=== PATIENT | female | born 1940 | race Caucasian/White ===

== ENCOUNTER 2017-11-23 19:27 | Observation (INO) ==
[2017-11-23] MEDS ORDERED: Acetaminophen 325 MG TABLET PO ONE (21:26)
--- NOTE | 2017-11-23 21:29 | Emergency Department Note ---
Disposition Clinical Impression: Bilateral pubic rami fractures Qualifiers: Encounter type: initial encounter Fracture type: closed Qualified Code(s): S32.591A - Other specified fracture of right pubis, initial encounter for closed fracture Disposition: Admitted As Inpatient Condition: Undetermined Time of Disposition: 23:06 General Adult HPI - General Chief complaint: ED Back Pain/Injury Stated complaint: fall, back pain, L leg pain Time Seen by Provider: 11/23/17 21:14 Source: patient, family Mode of arrival: wheelchair Limitations: no limitations Nursing Notes Reviewed: Yes Vital Signs Reviewed: Yes - History of Present Illness HPI Narrative: Patient with fall carpeted room yesterday morning while attempting to go to the bathroom. Today patient with difficulty ambulating, complaining of pain to the hips. Patient with history of dementia. Lives with family. Family unable to determine which hip is causing the most pain or if the pain is originating from some other area. Family states patient fell she did not hit her head no loss of consciousness. Baseline dementia without change. Pt Subjective Complaint: B HIP PAIN Onset (ago): day(s) (1) Location: pelvis Radiation: non-radiation Pain Severity: severe Pain Scale: 9 Quality: other Consistency: constant (Unsure due to baseline mental status) Improves with: rest Worsens with: other (Ambulation) - Related Data Home Medications Medication Instructions Recorded Confirmed Lisinopril [Zestril] 5 mg PO DAILY 11/23/17 11/23/17 Omeprazole [PriLOSEC] 40 mg PO DAILY 11/23/17 11/23/17 Quetiapine Fumarate [SEROquel] 25 mg PO HS 11/23/17 11/23/17 Simvastatin [Zocor] 20 mg PO DAILY 11/23/17 11/23/17 hydrOXYzine HCl [Hydroxyzine HCl] 25 mg PO Q6H PRN 11/23/17 11/23/17 Allergies Allergy/AdvReac Type Severity Reaction Status Date / Time No Known Allergies Allergy Verified 01/09/16 17:05 All systems ED: reviewed and negative except as stated. Review of Systems: As Per HPI Constitutional: Denies: fever, chills, weakness Cardiovascular: Reports: as per HPI. Denies: chest pain, palpitations Respiratory: Reports: as per HPI. Denies: cough, dyspnea, wheezes Gastrointestinal: Reports: as per HPI. Denies: abdominal pain, vomiting Genitourinary: Reports: as per HPI Musculoskeletal: Reports: other (Hip pain with movement, unable to ambulate.) Integumentary: Reports: as per HPI Neurological: Reports: other (Baseline dementia). Denies: headache, weakness, numbness, paresthesias Psychiatric: Reports: as per HPI Past Medical History - Past Medical History Source: obtained from family Medical history: Reports: dementia Psychiatric history: Reports: no psych history - Social History Smoking Status: Never smoker Smokeless Tobacco Status: No Alcohol use: Reports: none Drug use: Reports: none Physical Exam Patient sitting in wheelchair during examination. Unable to bear full weight to come out of wheelchair for exam or x-rays. Pt unable to stand out of chair, noted with grimace while attempting. Due to baseline dementia patient unable to describe type of pain or location of pain or any injury sustained during the fall. Palpation exam reveled pain in BLE pain with abduction and abduction of hips; pain with bilateral leg raises as manifested by patient yelling out in pain. - General Limitations: no limitations General appearance: alert - Head Head exam: atraumatic, normocephalic, normal inspection - Eye Eye exam: Present: normal appearance - ENT ENT exam: normal exam - Neck Neck exam: Present: normal inspection, full ROM, trachea midline. Absent: tenderness - Chest Chest inspection: Present: normal inspection, symmetric chest wall rise - Expanded Lower Extremity Exam Hip/Pelvis exam: Present: tenderness, other (See PE narrative). Absent: swelling, abrasion Upper leg exam: Present: normal inspection, tenderness Knee exam: Present: normal inspection. Absent: tenderness, swelling, deformity Lower leg exam: Present: normal inspection. Absent: tenderness, swelling, deformity Ankle exam: Present: normal inspection. Absent: tenderness, swelling, deformity Gait: unable to bear weight (with either leg) - Back Exam Back exam: Present: normal inspection. Absent: tenderness - Neurological Exam Neurological exam: Present: alert, CN II-XII intact, other ( baseline dementia) - Psychiatric Psychiatric exam: Present: normal affect, normal mood - Skin Skin exam: Present: warm, dry, intact Course Course Narrative: 77-year-old frail female with baseline dementia presents to emergency department for evluation of inability to ambulate and pain resulting from fall yesterday morning. patient lives with family who states that yesterday morning while trying to go to thee bathroom patien fell to carpeted floor. Family states her normal baseline is patient is ambulatory with a steady gait. Today patient unable to bear weight at all , complaints of pain with movement of bilateral lower extremities higher than the knee level. patient unable to specify where pain is located or describe intensity of pain due to baseline dementia , grimacing and yelling out during examination of hip and pelvis area of bilateral sides, palpation of all joints and spine negative except for the hip and pelvis area. x-ray revealed bilateral pelvic fractures and micheline/remus. Patient continues to be unable to bear weight. Will need rehabilitation and pain control spoke with patient and family about admission to the hospital and agreeable. - Reevaluation(s) Reevaluation #1: x-ray revealed bilateral pelvic fractures. Typically inoperable. order placed to admit accepted by Dr. Bundy labs and EKG ordered. Vital Signs Temperature 99.5 F 11/23/17 19:48 Pulse Rate 90 11/23/17 19:48 Respiratory Rate 20 11/23/17 19:48 Blood Pressure 136/61 11/23/17 19:48 O2 Sat by Pulse Oximetry 98 11/23/17 19:48 Temperature 97.8 F 11/23/17 23:43 Pulse Rate 84 11/23/17 23:43 Respiratory Rate 15 11/23/17 23:43 Blood Pressure 202/85 11/23/17 23:43 O2 Sat by Pulse Oximetry 97 11/23/17 23:43 Oxygen Delivery Oxygen Delivery Room Air Medical Decision Making - Lab Data Result diagrams: 11/23/17 22:39 11/23/17 22:46 Lab Results 11/23/17 11/23/17 Range/Units 22:39 22:46 WBC 8.7 (4.3-11.1) K/mcL RBC 3.96 (3.82-4.97) M/mcL Hgb 11.5 (11.5-15.4) g/dL Hct 33.7 L (35.3-44.9) % MCV 85.1 (83.0-100.0) fL MCH 29.0 (28.0-33.3) pg MCHC 34.1 (31.6-35.5) g/dL RDW 12.9 (11.5-14.5) % Plt Count 184 (140-400) K/mcL MPV 9.6 (9.4-12.4) fL Immature Gran % 0.3 (0-4) % Seg Neutrophils % 77.4 % Lymphocytes % 12.8 % Monocytes % 6.5 % Eosinophils % 2.5 % Basophils % 0.5 % Neutrophils # 6.7 (1.6-8.9) K/mcL Lymphocytes # 1.1 (0.6-4.6) K/mcL Monocytes # 0.6 (0.0-1.3) K/mcL Eosinophils # 0.2 (0.0-0.6) K/mcL Basophils # 0.0 (0.0-0.2) K/mcL Immature Plt Fraction 1.9 (1.1-6.1) % Sodium 137 (136-145) mEq/L Potassium 3.4 L (3.5-5.1) mEq/L Chloride 106 (98-107) mEq/L Carbon Dioxide 24 (23-29) mEq/L BUN 19 (8-23) mg/dL Creatinine 0.85 (0.60-1.20) mg/dL Est GFR ( Amer) > 60 (> 60) Est GFR (Non-Af Amer) > 60 (> 60) BUN/Creatinine Ratio 22 (6-26) Glucose 164 H (70-105) mg/dL Calculated Osmolality 290 (280-300) Calcium 9.0 (8.6-10.3) mg/dL Total Bilirubin 1.0 (0.3-1.0) mg/dL AST 14 (13-39) Units/L ALT 11 (7-52) Units/L Alkaline Phosphatase 73 (34-104) Units/L Serum Total Protein 6.6 (6.4-8.9) g/dL Albumin 3.9 (3.5-5.7) g/dL Globulin 2.7 (2.4-3.5) g/dL Albumin/Globulin Ratio 1.4 (1.1-2.2) Attestation Statement - Attestation Attestation: I, Justo Resendez MD, personally evaluated this patient and discussed their management with the resident physician. I reviewed the resident's note and agree with the documented findings, medical decision making, and plan of care. 77-year-old female presents to the emergency department with a complaint that she fell early Friday morning. It is now late Friday evening. She has been unable to ambulate since the fall. Patient thinks that she hit her head but is not sure. She does have some dementia. There was mention in the chart about lower back pain however patient denies lower back pain to me. On examination patient is a well-developed well-nourished elderly female in no acute distress. She is alert and oriented 3. There is no cyanosis or diaphoresis. Head is nontender with no palpable hematomas. Neck is nontender with full range of motion. Breath sounds are clear and equal bilaterally. Heart regular rate and rhythm. Abdomen soft and nontender with normal bowel sounds. There is no tenderness to palpation over the lumbar spine. There is tenderness on compression of the pelvis and palpation over the anterior pelvis. Pain with movement of the left hip. Neurovascular function intact distally. Labs reviewed. X-ray of the lumbar spine showed no acute fracture. X-ray of the pelvis showed bilateral pubic rami fractures. The hospitalist, Dr. Bundy, was consulted and accepted admission of the patient.
[2017-11-23 22:58] LABS: Basophils % 0.5 %; Eosinophils # 0.2 K/mcL (0.0-0.6); Eosinophils % 2.5 %; Hematocrit 33.7 % (35.3-44.9); Hemoglobin 11.5 g/dL (11.5-15.4); Immature Granulocytes % 0.3 % (0-4); Immature Platelets 1.9 % (1.1-6.1); Lymphocytes # 1.1 K/mcL (0.6-4.6); Lymphocytes % 12.8 %; Mean Corpuscular HGB Conc 34.1 g/dL (31.6-35.5); Mean Corpuscular Volume 85.1 fL (83.0-100.0); Mean Platelet Volume 9.6 fL (9.4-12.4); Monocytes # 0.6 K/mcL (0.0-1.3); Monocytes % 6.5 %; Neutrophils # 6.7 K/mcL (1.6-8.9); Platelet Count 184 K/mcL (140-400); Red Blood Count 3.96 M/mcL (3.82-4.97); Red Cell Distribution Width 12.9 % (11.5-14.5); Segmented Neutrophils % 77.4 %
[2017-11-23 23:14] LABS: Alanine Aminotransferase 11 Units/L (7-52); Albumin 3.9 g/dL (3.5-5.7); Albumin/Globulin Ratio 1.4 (1.1-2.2); Alkaline Phosphatase 73 Units/L (34-104); Aspartate Amino Transferase 14 Units/L (13-39); BUN/Creatinine Ratio 22 (6-26); Blood Urea Nitrogen 19 mg/dL (8-23); Carbon Dioxide 24 mEq/L (23-29); Chloride 106 mEq/L (98-107); Globulin 2.7 g/dL (2.4-3.5); Glucose 164 mg/dL (70-105); Osmolality,Calculated 290 (280-300); Potassium 3.4 mEq/L (3.5-5.1); Sodium 137 mEq/L (136-145); Total Protein 6.6 g/dL (6.4-8.9); eGFR For African Americans > 60 (> 60); eGFR For Non-African Americans > 60 (> 60)
[2017-11-24] MEDS ORDERED: Naloxone 0.4 MG/ML INJ IVP PRN (02:03)
[2017-11-24] MEDS ORDERED: Ondansetron 4 MG/2 ML VIAL IVP PRN (02:03)
[2017-11-24] MEDS ORDERED: Acetaminophen 325 MG TABLET PO PRN (02:03)
--- NOTE | 2017-11-24 02:19 | Internal Med History&Physical ---
Date of Encounter: 11/24/17 Time of Encounter: 02:12 Assessment and Plan (1) Bilateral pubic rami fractures Current visit: Yes Status: Acute 1. Will treat pain with oral and IV narcotics (if necessary) for adequate pain control. 2. Consult Orthopedics. 3. Patient will need PT/OT consults if ok with Orthopedics. Qualifiers: Encounter type: initial encounter Fracture type: closed Qualified Code(s) : S32.591A - Other specified fracture of right pubis, initial encounter for closed fracture; S32.592A - Other specified fracture of left pubis, initial encounter for closed fracture; S32.592A - Other specified fracture of left pubis , initial encounter for closed fracture; S32.592A - Other specified fracture of left pubis, initial encounter for closed fracture (2) Unwitnessed fall Current visit: Yes Status: Acute 1. Unable to obtain any history. As per ER discussions, patient had an unwitnessed fall. I have to presume this may have been due to syncope. 2. Will proceed with syncope work-up as follows: ECHO, Carotid Dopplers, serial troponins, EKG, and telemetry. I will also monitor glucose to rule out hypoglycemia. 3. I also ordered Head CT now. (3) Dementia Current visit: Yes Status: Chronic 1. I am unsure if she is at her baseline mental/cognitive state. Need to confirm with family. 2. Resume home meds as appropriate. Qualifiers: Dementia type: unspecified type Dementia behavioral disturbance: without behavioral disturbance Qualified Code(s): F03.90 - Unspecified dementia without behavioral disturbance (4) DVT prophylaxis Current visit: Yes Status: Acute 1. Heparin SQ. Internal Medicine - H&P: HPI Chief complaint: pelvic pain Admitted From: Emergency Dept Plans for Post Hospital Care: Transfer Care Home Facility History of present illness: Ms. Hamm is a 77 year old female who presented to ER with complaints of pelvic pain and inability to walk. She was found to have evidence of pelvic fracture on imaging in the ER. I was contacted by our staff to admit the patient. As per my discussions with the ER staff, I was informed that this was an unwitnessed fall and that she was found in the basement by her family. I asked the ER staff to obtain an EKG and some routine labs and requested that she be placed on telemetry floor. Reportedly, per my discussions with ER staff , patient has a history of dementia. Upon my assessment of the patient, she is confused, disoriented, and is unable to provide any history whatsoever. Family members are not present and have already left the premises. I reviewed her imaging studies from the ER and noted that there was no imaging performed of her head. I cannot palpate any deformities of her head or skull and did not appreciate any evidence of contusion of her head. Nonetheless, I will order CT of the head. Patient was unable to provide any history as to the nature of her fall, injury, or symptoms preceding, during, and after the fall. She does not realize she is in the hospital. She cannot tell me the correct day, time, place, or situation. No further history could be obtained. Past Med Surg Social Fam HX - Past Medical History Source: old records reviewed, other (ER discussion) Medical history: dementia Psychiatric history: no psych history - Past Surgical History Surgical History: cholecystectomy - Social History Smoking Status: Never smoker Smokeless Tobacco Status: No Alcohol use: none Drug use: none - Family History Mother Living Status: Hx Family Neurologic Disorders: Yes (Dementia) Internal Medicine - H&P: Meds Lisinopril [Zestril] 5 mg PO DAILY 11/23/17 [History] Omeprazole [PriLOSEC] 40 mg PO DAILY 11/23/17 [History] Quetiapine Fumarate [SEROquel] 25 mg PO HS 11/23/17 [History] Simvastatin [Zocor] 20 mg PO DAILY 11/23/17 [History] hydrOXYzine HCl [Hydroxyzine HCl] 25 mg PO Q6H PRN 11/23/17 [History] 3 Allergy/AdvReac Type Severity Reaction Status Date / Time No Known Allergies Allergy Verified 01/09/16 17:05 ROS unobtainable: due to mental status - Constitutional Vitals: Temp Pulse Resp BP Pulse Ox 97.8 F 84 15 202/85 97 11/23/17 23:43 11/23/17 23:43 11/23/17 23:43 11/23/17 23:43 11/23/17 23:43 General appearance: Present: A&O X 0, cooperative, disheveled, pleasant. Absent : answers questions appropriately Exam: looks dry, malnourished, and somewhat unkempt - Head Head exam: Present: normal inspection - Expanded Head Exam Head exam expanded: Absent: abrasion, Benjamin's sign, contusion, general tenderness, hematoma, laceration - Eye Eye exam: Present: EOMI, PERRL. Absent: scleral icterus Pupils: Present: normal accommodation - ENT ENT exam: Present: mucous membranes dry, normal exam - Neck Neck exam general surgery: Present: full ROM, supple. Absent: tenderness, nuchal rigidity - Expanded Neck Exam Neck exam: Absent: carotid bruit - Respiratory Respiratory exam: Present: CTAB. Absent: chest wall tenderness, rales, respiratory distress, rhonchi, wheezes - Cardiovascular Cardiovascular exam: Present: RRR, +S1, +S2. Absent: diastolic murmur, systolic murmur - GI/Abdominal GI/Abdominal exam: Present: normal bowel sounds, soft. Absent: guarding, hepatomegaly, mass, rebound, splenomegaly, tenderness - Additional comments: pain upon palpation of hips and pelvis/suprapubic bones - Extremities Exam Extremities exam: Present: normal capillary refill, warm, radial pulses palpable and symmetrical. Absent: calf tenderness, tenderness - Back Exam Back exam: Absent: CVA tenderness (L), CVA tenderness (R) - Neurological Exam Neurological exam: Present: altered, no focal deficits, strengths equal and symetr throughout. Absent: speech deficit - Psychiatric Additional comments: confused and disoriented - Skin Skin exam: Present: dry, rash (rash. scratch klein, and dry skin on legs), warm Internal Med - H&P Results - Labs CBC & Chem 7: 11/23/17 22:39 11/23/17 22:46 - Diagnostic Studies Other Images Status: image reviewed by me (Pelvic Xrays confirming pelvic fracture)
[2017-11-24] MEDS: *HR* OxyCODONE Immed Rel 5 MG TABLET PO PRN ×2 (02:34→13:32)
[2017-11-24 02:41] LABS: Basophils % 0.5 %; Eosinophils # 0.2 K/mcL (0.0-0.6); Eosinophils % 2.7 %; Hematocrit 36.4 % (35.3-44.9); Hemoglobin 12.2 g/dL (11.5-15.4); Immature Granulocytes % 0.5 % (0-4); Lymphocytes # 1.4 K/mcL (0.6-4.6); Lymphocytes % 16.1 %; Mean Corpuscular HGB Conc 33.5 g/dL (31.6-35.5); Mean Corpuscular Hemoglobin 28.8 pg (28.0-33.3); Mean Corpuscular Volume 86.1 fL (83.0-100.0); Mean Platelet Volume 9.9 fL (9.4-12.4); Monocytes # 0.7 K/mcL (0.0-1.3); Monocytes % 7.6 %; Neutrophils # 6.2 K/mcL (1.6-8.9); Platelet Count 186 K/mcL (140-400); Red Blood Count 4.23 M/mcL (3.82-4.97); Segmented Neutrophils % 72.6 %
[2017-11-24] MEDS: 0.9 % Sodium Chloride w KCl 20 MEQ/1,000 ML MLS IVC SCH ×2 (02:46→12:13)
[2017-11-24 02:51] LABS: INR 1.1; Prothrombin Time 11.4 Seconds (9.4-12.1)
[2017-11-24 02:54] LABS: Activated Partial Thrombo Time 27.7 Seconds (26.0-36.0)
[2017-11-24] MEDS: *HR* Morphine 2 MG/ML SYRINGE IVP PRN ×3 (02:56→12:12)
[2017-11-24 03:03] LABS: Alanine Aminotransferase 12 Units/L (7-52); Albumin 4.1 g/dL (3.5-5.7); Albumin/Globulin Ratio 1.5 (1.1-2.2); Alkaline Phosphatase 74 Units/L (34-104); Aspartate Amino Transferase 16 Units/L (13-39); BUN/Creatinine Ratio 20 (6-26); Bilirubin,Total 1.2 mg/dL (0.3-1.0); Blood Urea Nitrogen 17 mg/dL (8-23); Calcium 9.2 mg/dL (8.6-10.3); Carbon Dioxide 27 mEq/L (23-29); Chloride 105 mEq/L (98-107); Globulin 2.8 g/dL (2.4-3.5); Glucose 128 mg/dL (70-105); Osmolality,Calculated 291 (280-300); Potassium 3.4 mEq/L (3.5-5.1); Sodium 139 mEq/L (136-145); Total Protein 6.9 g/dL (6.4-8.9); eGFR For African Americans > 60 (> 60); eGFR For Non-African Americans > 60 (> 60)
[2017-11-24] MEDS: *HR* Heparin 5,000 UNIT/ML VIAL SQ SCH ×2 (06:45→18:30)
[2017-11-24] MEDS ORDERED: hydrOXYzine pamoate 25 MG CAPSULE PO PRN (15:21)
--- NOTE | 2017-11-24 15:38 | Orthopedic Consult Note ---
Date of Encounter: 11/24/17 Time of Encounter: 12:45 Assessment and Plan (1) Bilateral pubic rami fractures Current Visit: Yes Status: Acute Pubic rami fractures are nonsurgical. Dr. Segovia reviewed xrays as well and concern for possible shadowing to right femoral head, likely normal anatomy and not noted by radiologist but need to r/ o fracture. Patient would typically have pain in this area if fractured. Put leg through full ROM with no complaint of pain but unreliable history from patient. Will trial ambulating patient and if ambulate appropriately then will proceed with conservative treatment. If patient c/o increased pain to right hip with weightbearing then should consider CT scan to evaluate further. Begin PT/OT evaluation as tolerated, WBAT. Ice to hip as needed. Pain control per hospitalist. Follow up with sports medicine in [place] office in [address] not [address]. Qualifiers: Encounter type: initial encounter Fracture type: closed Qualified Code(s) : S32.591A - Other specified fracture of right pubis, initial encounter for closed fracture; S32.592A - Other specified fracture of left pubis, initial encounter for closed fracture; S32.592A - Other specified fracture of left pubis , initial encounter for closed fracture; S32.592A - Other specified fracture of left pubis, initial encounter for closed fracture History of Present Illness Chief complaint: fall HPI: Ms. Hamm is a 77 year old female who was brought to the ER last night for fall. Per nurse patient was found at bottom of stairs last night, unwitnessed fall. Patient is pleasantly confused. She knew her name but stated the month was August, she is currently at her sister's house and we have a female president. Family was not present so no further history obtainable. She states she currently has no pain but again she is poor historian. Past Med Surg Social Fam HX - Past Medical History Medical history: dementia Psychiatric history: no psych history - Past Surgical History Surgical History: cholecystectomy - Social History Smoking Status: Never smoker Smokeless Tobacco Status: No Alcohol use: none Drug use: none - Family History Mother Living Status: Hx Family Neurologic Disorders: Yes (Dementia) Medications and Allergies Lisinopril [Zestril] 5 mg PO DAILY 11/23/17 [History] Omeprazole [PriLOSEC] 40 mg PO DAILY 11/23/17 [History] Quetiapine Fumarate [SEROquel] 25 mg PO HS 11/23/17 [History] Simvastatin [Zocor] 20 mg PO DAILY 11/23/17 [History] hydrOXYzine HCl [Hydroxyzine HCl] 25 mg PO Q6H PRN 11/23/17 [History] Donepezil [Aricept] 10 mg PO DAILY 11/24/17 [History] Ranitidine HCl [Heartburn Relief] 150 mg PO HS 11/24/17 [History] risperiDONE [Risperidone] 1 tab PO DAILY 11/24/17 [History] 3 Allergy/AdvReac Type Severity Reaction Status Date / Time No Known Allergies Allergy Verified 01/09/16 17:05 ROS unobtainable: due to mental status All Systems Reviewed: A 10-system review of systems was performed and is negative for pertinent findings except as documented above in the HPI. Physical Exam - Constitutional Vitals: Temp Pulse Resp BP Pulse Ox 97.8 F 112 16 161/86 95 11/24/17 14:15 11/24/17 14:15 11/24/17 14:15 11/24/17 14:15 11/24/17 14:15 - Hip bilateral Tenderness with palpation: none Full ROM: yes Results - Labs Result Diagrams: 11/24/17 02:33 11/24/17 02:33 Labs: Abnormal lab results Potassium 3.4 mEq/L (3.5-5.1) L 11/24/17 02:33 Glucose 128 mg/dL (70-105) H 11/24/17 02:33 POC Glucose 99 (58-89) H 11/24/17 08:14 Total Bilirubin 1.2 mg/dL (0.3-1.0) H 11/24/17 02:33 H & H 11/24/17 Range/Units 02:33 Hgb 12.2 (11.5-15.4) g/dL Hct 36.4 (35.3-44.9) % All other labs normal. - Diagnostic results Hip AP/Lateral x-ray: report reviewed, image reviewed Consult Discharge Plan - Plan Referrals: Peri Guerra MD [Primary Care Provider] - - Attending Attestation Case and plan of care discussed with supervising physician who was available for all aspects of care.
--- NOTE | 2017-11-24 19:08 | Event Note ---
Date of Encounter: 11/24/17 Time of Encounter: 11:00 77-year-old female status post fall with Pubic rami fractures that are nonsurgical per orthopedic recommendations; physical therapy for evaluation
[2017-11-24] MEDS: Famotidine 20 MG TABLET PO SCH (19:37)
[2017-11-24] MEDS: Ammonium Lactate 30 APPL/225 GM BOTTLE TP SCH (20:36)
[2017-11-24] MEDS ORDERED: Haloperidol Lactate 5 MG/ML VIAL IM ONE (23:21)
[2017-11-24] MEDS ORDERED: Haloperidol Lactate 5 MG/ML VIAL ONE (23:44)
[2017-11-25] MEDS: *HR* Heparin 5,000 UNIT/ML VIAL SQ SCH ×2 (05:14→17:37)
[2017-11-25] MEDS: risperiDONE 1 MG TABLET PO SCH (11:33)
[2017-11-25] MEDS: Ammonium Lactate 30 APPL/225 GM BOTTLE TP SCH ×2 (11:33→21:24)
[2017-11-25] MEDS: *HR* OxyCODONE Immed Rel 5 MG TABLET PO PRN (11:33)
--- NOTE | 2017-11-25 13:39 | Orthopedics Progress Note ---
Date of Encounter: 11/25/17 Time of Encounter: 08:00 - Assessment and Plan (1) Bilateral pubic rami fractures Current Visit: Yes Status: Acute Pubic rami fractures are nonsurgical. Nurse states patient has been getting out of bed on own and walking with no problem and with no complaint of pain. Patient was moving legs back and forth in bed with no problem or complaint of pain. No tenderness to palpation of hip. Will hold off on CT scan at this time. Begin PT/OT evaluation as tolerated, WBAT. Ice to hip as needed. Pain control per hospitalist. Follow up with sports medicine in [facility] office in [address] not warranted. Orthopedics will sign off at this time but please call for any future questions. Qualifiers: Encounter type: initial encounter Fracture type: closed Qualified Code(s) : S32.591A - Other specified fracture of right pubis, initial encounter for closed fracture; S32.592A - Other specified fracture of left pubis, initial encounter for closed fracture; S32.592A - Other specified fracture of left pubis , initial encounter for closed fracture; S32.592A - Other specified fracture of left pubis, initial encounter for closed fracture Subjective Principal diagnosis: pubic rami fractures Interval history: Patient again pleasantly confused on exam, laying in bed with sitter at bedside. No family present. Denies any pain at this time. Moving legs back and forth on own in bed with no problem. Objective Vital signs: Vital Signs Temp Pulse Resp BP Pulse Ox 11/25/17 11:44 98.3 F 102 16 189/96 96 11/25/17 07:30 98.4 F 115 16 95 11/25/17 05:01 98.1 F 111 19 159/73 97 11/25/17 03:21 99.2 F 106 28 200/68 93 11/25/17 00:55 99.5 F 123 16 114/87 92 11/24/17 23:07 99.8 F H 121 28 199/71 93 11/24/17 20:09 98.2 F 100 20 185/107 94 11/24/17 17:44 97.9 F 104 16 97/58 96 11/24/17 14:15 97.8 F 112 16 161/86 95 Intake and Output 11/24/17 11/25/17 11/25/17 23:59 07:59 15:59 Intake Total 1000 / 1000 15 / 15 Output Total 0 / 0 0 / 0 0 / 0 Balance 1000 / 1000 0 / 0 15 / 15 Intake: IV Fluids 1000 / 1000 KCl 20 mEq in 0.9% Sodium 1000 / 1000 Chloride 20 meq In 1,000 ml @ 100 mls/hr IVC .Q10H SHARA Rx#: [id number] Oral 15 15 Output: Urine 0 / 0 0 / 0 0 / 0 Other: Meal Breakfast Percent of Meal Consumed 5% # Voids 1 0 # Urine Diapers 1 1 0 Blood Glucose* 164 120 106 - Labs CBC & BMP: 11/24/17 02:33 11/24/17 02:33 Labs: Abnormal lab results Potassium 3.4 mEq/L (3.5-5.1) L 11/24/17 02:33 Glucose 128 mg/dL (70-105) H 11/24/17 02:33 POC Glucose 121 (58-89) H 11/25/17 08:18 Total Bilirubin 1.2 mg/dL (0.3-1.0) H 11/24/17 02:33 Consult Discharge Plan - Plan Referrals: Peri Guerra MD [Primary Care Provider] -
[2017-11-25] MEDS ORDERED: cloNIDine HCl 0.1 MG TABLET PO SCH (15:00)
--- NOTE | 2017-11-25 17:15 | Internal Med Progress Note ---
Date of Encounter: 11/25/17 Time of Encounter: 17:14 - Subjective Interval history: Imterval Changes: Baseline confusion. Pain well controlled. Physical Exam: See below Assessment and Plan: Acute Bilateral pubic rami fractures Nonsurgical per orthopedics. No repeat CT per orthopedics Per notes; Patient has been getting out of bed on own and walking with no problem and with no complaint of pain. Patient was moving legs back and forth in bed with no problem or complaint of pain. No tenderness to palpation of hip. Will hold off on CT scan at this time. Begin PT/OT evaluation as tolerated, WBAT. Ice to hip as needed. Follow up with sports medicine in [place] office in 2 weeks - Constitutional Vitals: Temp Pulse Resp BP Pulse Ox 98.3 F 102 16 136/95 96 11/25/17 11:44 11/25/17 14:29 11/25/17 11:44 11/25/17 14:29 11/25/17 11:44 General appearance: Present: A&O X 0, cooperative, disheveled, pleasant. Absent : answers questions appropriately - Head Head exam: Present: atraumatic, normocephalic - Eye Eye exam: Present: PERRL, conjuntiva pink, sclera anicteric Pupils: Present: PERRL - Neck Neck exam general surgery: Present: supple, trachea midline. Absent: lymphadenopathy - Respiratory Respiratory exam: Present: CTAB. Absent: accessory muscle use, rales, rhonchi, wheezes - Cardiovascular Cardiovascular exam: Present: RRR, +S1, +S2. Absent: diastolic murmur, gallop, rubs, systolic murmur - GI/Abdominal GI/Abdominal exam: Present: normal bowel sounds, soft, no peritoneal signs. Absent: distended, tenderness - Extremities Exam Extremities exam: Present: warm, radial pulses palpable and symmetrical. Absent : calf tenderness, cyanotic, pedal edema - Neurological Exam Neurological exam: Present: CN II-XII intact, oriented X3, no focal deficits. Absent: pronater drift, facial droop, speech deficit - Skin Skin exam: Present: dry, intact Internal Medicine: Result - Labs CBC & Chem 7: 11/24/17 02:33 11/24/17 02:33 - ABG Interpretation ABG results: PT/INR, D-dimer PT 11.4 Seconds (9.4-12.1) 11/24/17 02:33 Consult Discharge Plan - Plan Referrals: Peri Guerar MD [Primary Care Provider] -
[2017-11-25] MEDS: Famotidine 20 MG TABLET PO SCH (21:24)
[2017-11-25] MEDS: cloNIDine HCl 0.1 MG TABLET PO PRN (23:27)
[2017-11-26] MEDS: *HR* Heparin 5,000 UNIT/ML VIAL SQ SCH (05:38)
--- NOTE | 2017-11-26 07:56 | Electrocardiograph Report ---
[place] [id number] Test Date: 2017-11-24 Pat Name: Komal Hamm Department: 114 Room: [facility] Gender: F Asp Web Developer: : 1940 Requested By: Toby Bundy Order Number: [id number] Reading MD: Gregory Hernandez MD Measurements Intervals [place] Rate: 77 P: 53 [place]: 190 QRS: 15 QRSD: 98 T: -10 QT: 375 QTc: 406 Interpretive Statements SINUS RHYTHM LEFT VENTRICULAR HYPERTROPHY AND ST-T CHANGE BASELINE ARTIFACT Electronically Signed On 11-26-2017 7:06:25 EST by Gregory Hernandez MD
[2017-11-26] MEDS: risperiDONE 1 MG TABLET PO SCH (09:55)
[2017-11-26] MEDS: Ammonium Lactate 30 APPL/225 GM BOTTLE TP SCH (09:55)
[2017-11-26 11:51] VITALS: BP 183/81
[2017-11-26] MEDS: *HR* OxyCODONE Immed Rel 5 MG TABLET PO PRN (12:04)
[2017-11-26] MEDS: cloNIDine HCl 0.1 MG TABLET PO PRN (12:10)
--- NOTE | 2017-11-26 12:40 | Physician Discharge Referral ---
Home Health/Hosp Referral Info Attending Provider: Marva - Diagnosis (1) Bilateral pubic rami fractures Priority: Primary Status: Acute - Respiratory Orders Smoking Cessation: Smoking cessation has been advised. For more information, call the [place] Tobacco Quit Line at 8-880-RJGC-NOW. - Diet/Nutrition Diet/Nutrition Orders: Regular - Activity Activity Orders: Walker - Services Needed Following services are medically necessary services: Nursing, Home Health Aide, Physical Therapy, Occupational Therapy - Transfer Medications Home Medications: Lisinopril [Zestril] 5 mg PO DAILY 11/23/17 [History] Omeprazole [PriLOSEC] 40 mg PO DAILY 11/23/17 [History] Quetiapine Fumarate [SEROquel] 25 mg PO BID 11/23/17 [History] Simvastatin [Zocor] 20 mg PO HS 11/23/17 [History] hydrOXYzine HCl [Hydroxyzine HCl] 25 mg PO Q6H PRN 11/23/17 [History] Ammonium Lactate [Amlactin] 1 each TP BID 11/24/17 [History] Donepezil [Aricept] 10 mg PO HS 11/24/17 [History] Ranitidine HCl [Heartburn Relief] 150 mg PO HS PRN 11/24/17 [History] risperiDONE [Risperidone] 1 mg PO BID 11/24/17 [History] Allergies/Adverse Reactions: 3 Allergy/AdvReac Type Severity Reaction Status Date / Time No Known Allergies Allergy Verified 01/09/16 17:05 Certification: Further, I certify that my clinical findings support that this patient is homebound (i.e. absences from home require considerable and taxing effort and are for medical reasons or anabaptist services or infrequently or short duration when for other reasons) because: Homebound Reason: Patient requires assistance of a person or device to safely leave home Attestation: My signature below is to certify that this patient is under my care and that I, or nurse practitioner, or a physician's library clerical assistant working with me, has a face-to -face encounter with this patient.
--- NOTE | 2017-11-26 12:47 | Discharge Summary ---
Date of Encounter: 12/02/17 Time of Encounter: 12:41 - Discharge Diagnosis (1) Bilateral pubic rami fractures Priority: Primary Status: Acute Qualifiers: Encounter type: initial encounter Fracture type: closed Qualified Code(s) : S32.591A - Other specified fracture of right pubis, initial encounter for closed fracture; S32.592A - Other specified fracture of left pubis, initial encounter for closed fracture; S32.592A - Other specified fracture of left pubis , initial encounter for closed fracture; S32.592A - Other specified fracture of left pubis, initial encounter for closed fracture - Discharge Medications Prescriptions: OxyCODONE Immed Rel [Roxicodone 5 MG] 5 mg PO Q6HR PRN 5 Days #30 tablet PRN Reason: Moderate Pain (4-6) Docusate [Colace] 100 mg PO BID PRN 30 Days #60 capsule PRN Reason: Constipation Home Medications: Lisinopril [Zestril] 5 mg PO DAILY 11/23/17 [History] Omeprazole [PriLOSEC] 40 mg PO DAILY 11/23/17 [History] Quetiapine Fumarate [Seroquel] 25 mg PO BID 11/23/17 [History] Simvastatin [Zocor] 20 mg PO HS 11/23/17 [History] hydrOXYzine HCl [Hydroxyzine HCl] 25 mg PO Q6H PRN 11/23/17 [History] Ammonium Lactate [Amlactin] 1 each TP BID 11/24/17 [History] Donepezil [Aricept] 10 mg PO HS 11/24/17 [History] Ranitidine HCl [Heartburn Relief] 150 mg PO HS PRN 11/24/17 [History] risperiDONE [Risperidone] 1 mg PO BID 11/24/17 [History] Docusate [Colace] 100 mg PO BID PRN 30 Days #60 capsule 11/26/17 [Rx] OxyCODONE Immed Rel [Roxicodone 5 MG] 5 mg PO Q6HR PRN 5 Days #30 tablet [Rx] Allergies/Adverse Reactions: 3 Allergy/AdvReac Type Severity Reaction Status Date / Time No Known Allergies Allergy Verified 01/09/16 17:05 Procedures/tests Complete & Pending: Procedures Performed prior 72 hours Category Date Time Status CT cervical spine wo con [CT] Routine Cat Scan 11/24/17 13:[address] head/brain wo con [CT] Routine Cat Scan 11/24/17 07:30 Completed ECG 12 lead ECG [ECG] Routine Y 11/24/17 02:03 Completed EV carotid duplex imaging BI Routine Y 11/24/17 02:07 Completed EV echocardiogram Routine Y 11/24/17 02:07 Completed Date of admission: 11/23/17 23:04 Primary care physician: Peri Guerra Consults: 11/23/17 23:59 Consult to Radiology Technologist [CONS] Routine Reason for SW Consult: Family wants to know possible options for rehab. 11/24/17 15:24 Consult to Occupational Therapy [CONS] Routine Comment: Evaluate, develop and implement POC Reason for Consult: WEIGHT BEARING TOLERATED, MULTIPLE PELVIC FRACTURES Consult to Physical Therapy [CONS] Routine Comment: Evaluate, develop and implement POC Reason for Consult: WEIGHT BEARING TOLERATED, MULTIPLE PELVIC FRACTURES Discharging clinician: Ray Durham - Patient Status Disposition: Home Health Service Condition: Undetermined - Discharge Instructions Instructions: Pelvic Fracture (DC) Follow Up With: Peri Geurra MD [Primary Care Provider] - Hospital course: Hospital Course: Ms. Hamm is a 77 year old female who presented to ER with complaints of pelvic pain and inability to walk. She was found to have evidence of pelvic fracture on imaging in the ER. I was contacted by our staff to admit the patient. As per my discussions with the ER staff, I was informed that this was an unwitnessed fall and that she was found in the basement by her family. I asked the ER staff to obtain an EKG and some routine labs and requested that she be placed on telemetry floor. Reportedly, per my discussions with ER staff , patient has a history of dementia. Upon my assessment of the patient, she is confused, disoriented, and is unable to provide any history whatsoever. Family members are not present and have already left the premises. I reviewed her imaging studies from the ER and noted that there was no imaging performed of her head. I cannot palpate any deformities of her head or skull and did not appreciate any evidence of contusion of her head. Nonetheless, I will order CT of the head. Patient was unable to provide any history as to the nature of her fall, injury, or symptoms preceding, during, and after the fall. She does not realize she is in the hospital. She cannot tell me the correct day, time, place, or situation. No further history could be obtained. Physical Exam: General appearance: Present: A&O X 0, cooperative, disheveled, pleasant. Absent : answers questions appropriately - Head Head exam: Present: atraumatic, normocephalic - Eye Eye exam: Present: PERRL, conjuntiva pink, sclera anicteric Pupils: Present: PERRL - Neck Neck exam general surgery: Present: supple, trachea midline. Absent: lymphadenopathy - Respiratory Respiratory exam: Present: CTAB. Absent: accessory muscle use, rales, rhonchi, wheezes - Cardiovascular Cardiovascular exam: Present: RRR, +S1, +S2. Absent: diastolic murmur, gallop, rubs, systolic murmur - GI/Abdominal GI/Abdominal exam: Present: normal bowel sounds, soft, no peritoneal signs. Absent: distended, tenderness - Extremities Exam Extremities exam: Present: warm, radial pulses palpable and symmetrical. Absent : calf tenderness, cyanotic, pedal edema - Neurological Exam Neurological exam: Present: CN II-XII intact, oriented X3, no focal deficits. Absent: pronater drift, facial droop, speech deficit - Skin Skin exam: Present: dry, intact A/P: Acute Bilateral pubic rami fractures Nonsurgical per orthopedics. No repeat CT per orthopedics Per notes; Patient has been getting out of bed on own and walking with no problem and with no complaint of pain. Patient was moving legs back and forth in bed with no problem or complaint of pain. No tenderness to palpation of hip. Will hold off on CT scan at this time. Begin PT/OT evaluation as tolerated, WBAT. Ice to hip as needed. Follow up with sports medicine in [facility] office in 2 weeks Dementia At baseline mental/cognitive state per family. She has underlying dementia . Resume home meds as appropriate. Time spent discussing smoking cessation with patient: more than 10 minutes - Time Spent with Patient Total time spent providing and/or coordinating discharge services: Greater than 30 minutes - Constitutional Vitals: Temp Pulse Resp BP Pulse Ox 97.8 F 109 20 183/81 99 11/26/17 11:49 11/26/17 11:49 11/26/17 11:49 11/26/17 11:49 11/26/17 11:49 General appearance: Present: A&O X 0, cooperative, disheveled, pleasant. Absent : answers questions appropriately
== END 2017-11-26 13:20 | disposition home health service (06) ==
LOC: EMEROO 19:27 → 3NENU 23:04 → INTOOBSV 23:04 → 3NENU 23:21
PROVIDERS: ADMIT Pediatrics; ATTEND Hospitalist

== ENCOUNTER 2018-02-23 21:09 | Inpatient (IN) ==
[2018-02-24] MEDS ORDERED: Acetaminophen 325 MG TABLET PO PRN (03:54)
[2018-02-24] MEDS ORDERED: Naloxone 0.4 MG/ML INJ IVP PRN (03:54)
[2018-02-24] MEDS ORDERED: Famotidine 20 MG TABLET PO PRN (03:58)
[2018-02-24] MEDS ORDERED: hydrOXYzine pamoate 25 MG CAPSULE PO PRN (03:58)
--- NOTE | 2018-02-24 04:09 | Internal Med History&Physical ---
Date of Encounter: 02/24/18 Time of Encounter: 03:00 Internal Medicine - H&P: HPI Chief complaint: Fall Admitted From: Long-term Nursing Facility Plans for Post Hospital Care: Transfer [facility] History of present illness: Ms. Hamm is a 77 year old female transferred from [place] emergency room for right hip fracture. Past medical history is significant for GERD, dementia , hypertension, hyperlipidemia, COPD, osteoporosis, Sweet syndrome. Patient was seen the from [facility] to [place] ER because of fall. [facility]. Patient was further transferred to our hospital for orthopedic consult. Patient is demented , cannot provide further history. Patient can move bilateral upper extremity and left leg without pain. Patient had CT head and chest x-ray in [place] ER, results are unremarkable. The x-ray of pelvis shows right hip fracture, left inferior pubic ramus fracture, and old left pubic rami fracture. Orthopedic consult was called before transfer. Past Med Surg Social Fam HX - Past Medical History Medical history: dementia Psychiatric history: no psych history - Past Surgical History Surgical History: cholecystectomy - Social History Smoking Status: Never smoker Smokeless Tobacco Status: No Alcohol use: none Drug use: none - Family History Mother Living Status: Hx Family Neurologic Disorders: Yes (Dementia) Internal Medicine - H&P: Meds Lisinopril [Zestril] 2.5 mg PO DAILY 11/23/17 [History] Omeprazole [PriLOSEC] 40 mg PO DAILY 11/23/17 [History] Quetiapine Fumarate [Seroquel] 100 mg PO BID 11/23/17 [History] Simvastatin [Zocor] 20 mg PO HS 11/23/17 [History] hydrOXYzine HCl [Hydroxyzine HCl] 25 mg PO Q6H PRN 11/23/17 [History] Ammonium Lactate [Amlactin] 1 each TP BID 11/24/17 [History] Donepezil [Aricept] 10 mg PO HS 11/24/17 [History] Ranitidine HCl [Heartburn Relief] 150 mg PO HS PRN 11/24/17 [History] risperiDONE [Risperidone] 0.25 mg PO BID 11/24/17 [History] Docusate [Colace] 100 mg PO BID PRN 30 Days #60 capsule 11/26/17 [Rx] OxyCODONE Immed Rel [Roxicodone 5 MG] 5 mg PO Q6HR PRN 5 Days #30 tablet [Rx] Clonazepam 0.5 mg PO 02/24/18 [History] 3 Allergy/AdvReac Type Severity Reaction Status Date / Time No Known Allergies Allergy Verified 01/09/16 17:05 All Systems PM: A 10-system review of systems was performed and is negative for pertinent findings except as documented above in the HPI. - Constitutional Vitals: Temp Pulse Resp BP Pulse Ox 97.8 F 82 16 204/79 94 02/24/18 03:23 02/24/18 03:23 02/24/18 03:23 02/24/18 03:23 02/24/18 03:23 General appearance: Present: A&O X 0, pleasant, no acute distress, answers questions appropriately - Head Head exam: Present: atraumatic, normocephalic - Eye Eye exam: Present: PERRL, conjuntiva pink, sclera anicteric Pupils: Present: PERRL - Neck Neck exam general surgery: Present: supple, trachea midline. Absent: lymphadenopathy - Respiratory Respiratory exam: Present: CTAB. Absent: accessory muscle use, rales, rhonchi, wheezes - Cardiovascular Cardiovascular exam: Present: RRR, +S1, +S2. Absent: diastolic murmur, gallop, rubs, systolic murmur - GI/Abdominal GI/Abdominal exam: Present: normal bowel sounds, soft, no peritoneal signs. Absent: distended, tenderness - Extremities Exam Extremities exam: Present: warm, radial pulses palpable and symmetrical. Absent : calf tenderness, cyanotic, pedal edema Additional comments: Right leg ROM limited due to pain - Neurological Exam Neurological exam: Present: CN II-XII intact, oriented X3, no focal deficits. Absent: pronater drift, facial droop, speech deficit - Skin Skin exam: Present: dry, intact Internal Med - H&P Results - EKG Data -: EKG Interpreted by Myself EKG shows normal: sinus rhythm Rate: normal - Assessment and plan (1) Closed right hip fracture Current Visit: Yes Status: Acute Assessment and plan: Patient has right hip fracture due to fall. Place patient on IV fluid, pain medication. Orthopedic consult. Nothing by mouth at this point for possible surgery. Qualifiers: Encounter type: initial encounter Qualified Code(s): S72.001A - Fracture of unspecified part of neck of right femur, initial encounter for closed fracture (2) Hypertension Current Visit: Yes Status: Acute Assessment and plan: Patient's BP is high. Probably due to pain. Will continue home medication. Given 1 dose labetalol 100 mg by mouth. Hydralazine 5 mg IV every 6 hours when necessary for high blood pressure. Closely monitor patient. Qualifiers: Hypertension type: essential hypertension Qualified Code(s): I10 - Essential (primary) hypertension (3) COPD (chronic obstructive pulmonary disease) Current Visit: Yes Status: Acute Assessment and plan: Patient has no wheezing, no cough. Place patient on DuoNeb when necessary Qualifiers: COPD type: emphysema Emphysema type: unspecified Qualified Code(s): J43.9 - Emphysema, unspecified (4) Bilateral pubic rami fractures Current Visit: No Status: Acute Assessment and plan: Orthopedic consult for further management Qualifiers: Encounter type: initial encounter Fracture type: closed Qualified Code(s) : S32.591A - Other specified fracture of right pubis, initial encounter for closed fracture; S32.592A - Other specified fracture of left pubis, initial encounter for closed fracture; S32.592A - Other specified fracture of left pubis , initial encounter for closed fracture; S32.592A - Other specified fracture of left pubis, initial encounter for closed fracture (5) DVT prophylaxis Current Visit: No Status: Acute Assessment and plan: EPCD at this point, may started anticoagulation after surgery (6) Unwitnessed fall Current Visit: No Status: Acute Assessment and plan: CT head has been done, no bleeding. Continue closely monitor patient. Patient may need rehabilitation discharge after surgery (7) Dementia Current Visit: No Status: Chronic Assessment and plan: Patient has baseline dementia. Generally mental status is probably at baseline now Qualifiers: Dementia type: unspecified type Dementia behavioral disturbance: without behavioral disturbance Qualified Code(s): F03.90 - Unspecified dementia without behavioral disturbance - Time Spent With Patient Total time spent is greater than 50% in coordination of care (as documented) at patient's floor/unit and/or counseling patient: 40 minutes Greater than 35 minutes
[2018-02-24] MEDS ORDERED: Ipratropium/Albuterol Neb 3 ML IH PRN (04:12)
[2018-02-24 05:26] LABS: Basophils % 0.3 %; Eosinophils % 0.5 %; Hematocrit 31.6 % (35.3-44.9); Hemoglobin 10.5 g/dL (11.5-15.4); Immature Granulocytes % 0.3 % (0-4); Lymphocytes # 1.4 K/mcL (0.6-4.6); Mean Corpuscular HGB Conc 33.2 g/dL (31.6-35.5); Mean Corpuscular Hemoglobin 28.1 pg (28.0-33.3); Mean Corpuscular Volume 84.5 fL (83.0-100.0); Mean Platelet Volume 9.9 fL (9.4-12.4); Monocytes # 0.7 K/mcL (0.0-1.3); Monocytes % 9.6 %; Neutrophils # 5.1 K/mcL (1.6-8.9); Platelet Count 211 K/mcL (140-400); Red Blood Count 3.74 M/mcL (3.82-4.97); Red Cell Distribution Width 13.8 % (11.5-14.5); Segmented Neutrophils % 70.3 %
[2018-02-24] MEDS: 0.9 % Sodium Chloride 1,000 ML IVC SCH (05:31)
[2018-02-24 05:33] LABS: INR 1.1; Prothrombin Time 12.3 Seconds (9.4-12.1)
[2018-02-24 05:43] LABS: BUN/Creatinine Ratio 16 (6-26); Blood Urea Nitrogen 12 mg/dL (8-23); Calcium 9.2 mg/dL (8.6-10.3); Carbon Dioxide 27 mEq/L (23-29); Chloride 105 mEq/L (98-107); Glucose 116 mg/dL (70-105); Magnesium 2.2 mg/dL (1.6-2.6); Osmolality,Calculated 285 (280-300); Potassium 4.1 mEq/L (3.5-5.1); Sodium 137 mEq/L (136-145); eGFR For African Americans > 60 (> 60); eGFR For Non-African Americans > 60 (> 60)
[2018-02-24] MEDS: risperiDONE 0.25 MG TABLET PO SCH ×2 (08:06→22:10)
[2018-02-24] MEDS: *HR* HYDROcodone/Acet 5/325 mg TABLET PO PRN ×3 (08:06→22:10)
--- NOTE | 2018-02-24 12:02 | Orthopedic Consult Note ---
Date of Encounter: 02/24/18 Time of Encounter: 16:16 Assessment and Plan (1) Intertrochanteric fracture of right hip Current Visit: Yes Status: Acute Patient with underlying dementia, s/p fall at [facility]. XR/XR hip complete RT IMPRESSION: 1. Moderately displaced acute right intratrochanteric fracture. 2. Healing fracture in the left superior pubic ramus. Possible healing fracture in the right inferior pubic ramus. I have reviewed this case with - plan for surgery Friday. Consent for Right Hip Intramedullary nail fixation with NPO after midnight. NWB, catheter in place. I spoke with her son, TRINI - CIRA and reviewed consent. HE is coming to the [facility] tonight to sign consent. All Questions were addressed and answered. She is admitted with medical team, will check with them for surgical clearance. POA information: Trini: [phone] Juan: [phone] Qualifiers: Encounter type: initial encounter Fracture type: closed Fracture alignment: displaced Qualified Code(s): S72.141A - Displaced intertrochanteric fracture of right femur, initial encounter for closed fracture (2) Dementia Current Visit: No Status: Chronic Qualifiers: Dementia type: unspecified type Dementia behavioral disturbance: without behavioral disturbance Qualified Code(s): F03.90 - Unspecified dementia without behavioral disturbance (3) Hypertension Current Visit: Yes Status: Acute Qualifiers: Hypertension type: essential hypertension Qualified Code(s): I10 - Essential (primary) hypertension (4) COPD (chronic obstructive pulmonary disease) Current Visit: Yes Status: Acute Qualifiers: COPD type: emphysema Emphysema type: unspecified Qualified Code(s): J43.9 - Emphysema, unspecified History of Present Illness Chief complaint: Right Hip fracture HPI: Ms. Hamm is a 77 year old female, status post unwitnessed fall at [facility]. She was transferred from [facility] for orthopedic evaluation due to right hip fracture. -Patient poor historian due to dementia. History obtained from nursing report and medical records. She has a history of bilateral pubic rami fractures approx 2 months ago - treated non-operatively, and since then has had progressive decline in her mental status per her POA and son Trini. She was placed in [facility]CF and has been there for a short time. No previous fracture of femur or hip. Right Lower leg: Appears ER, patient currently has catheter in and difficulty staying in bed. No obvious lesions, rashes or abrasions noted. Minimal swelling to hip region, no erythema or ecchymosis noted. No calf tenderness. Denies tenderness when palpating hip region as well. NV intact distally. Past Med Surg Social Fam HX - Past Medical History Medical history: dementia Psychiatric history: no psych history - Past Surgical History Surgical History: cholecystectomy - Social History Smoking Status: Never smoker Smokeless Tobacco Status: No Alcohol use: none Drug use: none - Family History Mother Living Status: Hx Family Neurologic Disorders: Yes (Dementia) Medications and Allergies Lisinopril [Zestril] 5 mg PO DAILY 11/23/17 [History] Omeprazole [PriLOSEC] 40 mg PO DAILY 11/23/17 [History] Quetiapine Fumarate [Seroquel] 100 mg PO BID 11/23/17 [History] Simvastatin [Zocor] 20 mg PO HS 11/23/17 [History] hydrOXYzine HCl [Hydroxyzine HCl] 25 mg PO Q6H PRN 11/23/17 [History] Ammonium Lactate [Amlactin] 1 each TP BID 11/24/17 [History] Ranitidine HCl [Heartburn Relief] 150 mg PO HS PRN 11/24/17 [History] risperiDONE [Risperidone] 0.25 mg PO BID 11/24/17 [History] Docusate [Colace] 100 mg PO BID PRN 30 Days #60 capsule 11/26/17 [Rx] clonazePAM [Klonopin] 0.5 - 1 mg PO BID PRN 02/24/18 [History] 3 Allergy/AdvReac Type Severity Reaction Status Date / Time No Known Allergies Allergy Verified 01/09/16 17:05 ROS unobtainable: due to mental status All Systems Reviewed: The remainder of the systems were reviewed and are negative - Constitutional Constitutional: as per HPI Physical Exam - Constitutional Vitals: Temp Pulse Resp BP Pulse Ox 98.1 F 82 16 154/51 94 02/24/18 11:12 02/24/18 11:12 02/24/18 11:12 02/24/18 11:12 02/24/18 11:12 General appearance IM: A&O X 0, no acute distress - Fracture right hip Appearance: normal, other Compartments: soft Distal extremity neurovascularly intact: Yes Proximal joint involvement: No Distal joint involvement: No Results - Labs Result Diagrams: 02/24/18 05:14 02/24/18 05:14 Labs: Abnormal lab results RBC 3.74 M/mcL (3.82-4.97) L 02/24/18 05:14 Hgb 10.5 g/dL (11.5-15.4) L 02/24/18 05:14 Hct 31.6 % (35.3-44.9) L 02/24/18 05:14 PT 12.3 Seconds (9.4-12.1) H 02/24/18 05:14 Glucose 116 mg/dL (70-105) H 02/24/18 05:14 H & H 02/24/18 Range/Units 05:14 Hgb 10.5 L (11.5-15.4) g/dL Hct 31.6 L (35.3-44.9) % All other labs normal. HIP XRAYS: XR/XR hip complete RT IMPRESSION: 1. Moderately displaced acute right intratrochanteric fracture. 2. Healing fracture in the left superior pubic ramus. Possible healing fracture in the right inferior pubic ramus. Head CT: reported no abnl. - Diagnostic results Hip x-ray: report reviewed ( XR/XR hip complete RT), image reviewed Consult Discharge Plan - Plan Referrals: Peri Guerra MD [Primary Care Provider] -
--- NOTE | 2018-02-24 15:04 | Event Note ---
Date of Encounter: 02/24/18 Time of Encounter: 11:00 Patient evaluated by nocturnalist earlier this morning and also by myself Patient is a 77-year-old female status post fall at [facility] found to have right hip fracture at [facility] emergency room where [facility] orthopedic was consulted before transfer. 1. Right hip fracture/left inferior pubic ramus fracture -Orthopedics consulted and appreciate recommendations 2. Dementia -Patient poor historian due to dementia
[2018-02-24] MEDS ORDERED: Haloperidol Lactate 5 MG/ML VIAL IM ONE (17:43)
[2018-02-25] MEDS: *HR* HYDROcodone/Acet 5/325 mg TABLET PO PRN (04:03)
--- NOTE | 2018-02-25 07:26 | Orthopedics Progress Note ---
Date of Encounter: 02/25/18 Time of Encounter: 07:25 Subjective Interval history: Patient seen this morning resting comfortably right hip fracture for surgery today patient suffers from dementia. Objective Vital signs: Vital Signs Temp Pulse Resp BP Pulse Ox 02/25/18 02:55 98 F 90 18 149/76 96 02/24/18 22:22 100.1 F H 96 18 147/69 94 02/24/18 20:06 100.1 F H 95 20 150/69 95 02/24/18 16:41 98.4 F 102 18 164/74 93 02/24/18 11:12 98.1 F 82 16 154/51 94 Intake and Output 02/24/18 02/24/18 02/25/18 15:59 23:59 07:59 Intake Total 0 / 0 0 / 0 Output Total 300 / 300 150 / 150 Balance 0 / 0 -300 / -300 -150 / -150 Intake: Oral 0 / 0 0 / 0 Output: Catheter 300 / 300 150 / 150 Other: Meal NPO - Labs CBC & BMP: 02/24/18 05:14 02/24/18 05:14 Labs: Abnormal lab results RBC 3.74 M/mcL (3.82-4.97) L 02/24/18 05:14 Hgb 10.5 g/dL (11.5-15.4) L 02/24/18 05:14 Hct 31.6 % (35.3-44.9) L 02/24/18 05:14 PT 12.3 Seconds (9.4-12.1) H 02/24/18 05:14 Glucose 116 mg/dL (70-105) H 02/24/18 05:14 Consult Discharge Plan - Plan Referrals: Peri Guerra MD [Primary Care Provider] -
[2018-02-25] MEDS: risperiDONE 0.25 MG TABLET PO SCH ×2 (10:04→21:09)
--- NOTE | 2018-02-25 11:05 | Anesthesia Evaluation PreOp ---
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) Other Medical History: Other (Anemia, termite exterminator nursing facility resident) Anesthesia History: No Prior Anesthetic Complications, Past Anesthesia Alcohol Use: none Drug use: none Medications and Allergies Lisinopril [Zestril] 5 mg PO DAILY 11/23/17 [History] Omeprazole [PriLOSEC] 40 mg PO DAILY 11/23/17 [History] Quetiapine Fumarate [Seroquel] 100 mg PO BID 11/23/17 [History] Simvastatin [Zocor] 20 mg PO HS 11/23/17 [History] hydrOXYzine HCl [Hydroxyzine HCl] 25 mg PO Q6H PRN 11/23/17 [History] Ammonium Lactate [Amlactin] 1 each TP BID 11/24/17 [History] Ranitidine HCl [Heartburn Relief] 150 mg PO HS PRN 11/24/17 [History] risperiDONE [Risperidone] 0.25 mg PO BID 11/24/17 [History] Docusate [Colace] 100 mg PO BID PRN 30 Days #60 capsule 11/26/17 [Rx] clonazePAM [Klonopin] 0.5 - 1 mg PO BID PRN 02/24/18 [History] 3 Allergy/AdvReac Type Severity Reaction Status Date / Time No Known Allergies Allergy Verified 01/09/16 17:05 - Meds/Allergy Pre-op Review Medications Reviewed: Yes Allergies Reviewed: Yes Beta Blockers on Current Med List: No Anesthesia Results - Labs 02/24/18 05:14 02/24/18 05:14 Anesthesia Exam O2 Sat O2 Sat by Pulse Oximetry 97 O2 Sat by Pulse Oximetry 96 O2 Sat by Pulse Oximetry 94 O2 Sat by Pulse Oximetry 95 O2 Sat by Pulse Oximetry 93 O2 Sat by Pulse Oximetry 94 Vital Signs/O2 Sat, Most Current Temp Pulse Resp BP Pulse Ox 97.9 F 89 16 120/74 97 02/25/18 10:04 02/25/18 10:04 02/25/18 10:04 02/25/18 10:04 02/25/18 10:04 NPO (# of Hours): >8 - HEENT Pupil (Motor): Pupils equal Mallampati: II Teeth: Edentulous - Cardiac Rhythm: Regular - Pulmonary Breath Sounds: bilateral Clear - Additional Findings Pt is severely demented. No meaningful communication. History from chart review and son over the phone. Anesthesia Assess/Plan ASA Score: 4 Anesthetic Plan: General, Regional Monitoring Plan: Standard Monitors Recovery Plan: PACU Anes Supervising Prov Stmt: Anesthesia plan, risks, benefits and alternatives discussed with sons Marquise and Juan over the phone. Primary POA is son Marquise Hansel, consent for anesthesia was obtained verbally over the phone.
[2018-02-25] MEDS ORDERED: *HR* Propofol 200 MG/20 ML VIAL IVP ONE ×2 (11:23→13:49)
[2018-02-25] MEDS ORDERED: *HR* FentaNYL (PF) 100 MCG/2 ML VIAL ONE (11:23)
[2018-02-25] MEDS ORDERED: Lidocaine -MPF 2% 2 ML VIAL ONE (11:24)
[2018-02-25] MEDS ORDERED: Ketorolac 30 MG/ML VIAL ONE (11:52)
[2018-02-25 12:31] LABS: Hematocrit 30.6 % (35.3-44.9); Hemoglobin 9.8 g/dL (11.5-15.4)
[2018-02-25] MEDS ORDERED: MORPHINE SUL Oral CONC 10 MG/0.5 ML ORAL.SYG SL PRN (12:46)
[2018-02-25] MEDS ORDERED: Ondansetron 4 MG/2 ML VIAL IVP ONE (12:46)
[2018-02-25] MEDS ORDERED: *HR* HYDROmorphone 2 MG TABLET PO PRN (12:46)
--- NOTE | 2018-02-25 13:46 | Anesthesia Procedures ---
Date of Encounter: 02/25/18 Time of Encounter: 13:10 Procedures: Anesthesia - Epidural/Spinal Patient examined: Yes Consent Obtained: Yes Supplemental Oxygen: Nasal Cannula Supplemental Oxygen Rate (L/min): 2 Site Prep: Sterile prep and drape, Povidone-Iodine 1% Patient position: left lateral decubitus Local Anesthetic: other Amount of Local Anesthetic used: 2 (0.5% bupivicaine) Interspace Used: L3-L4 CSF: Yes Spinal Needle Gauge: 25 Spinal Dose: 2ml 0.5% bupivicaine Vitals + FHT's: Last Vital Signs Temp 97.9 F 02/25/18 10:04 Pulse 89 02/25/18 10:04 Resp 16 02/25/18 10:04 BP 120/74 02/25/18 10:04 Pulse Ox 97 02/25/18 10:04
--- NOTE | 2018-02-25 13:59 | Orthopedic Operative Note ---
Date of procedure: 02/25/18 Pre-op diagnosis: Right hip fracture Post-op diagnosis: same Procedure: Procedure: Right hip open reduction intramedullary nail fixation Estimated blood loss: 50 cc Hardware: Metal: 10 x 130 degrees Synthes TFN, 110 helical blade, 36 mm distal locking bolt Operative procedure: The patient was brought to the operating room and placed on the operating room table. After general anesthesia was administered the well leg was place in the well leg higuera and the operative leg was placed in the fracture leg higuera. All pressure points were padded appropriately. The operative extremity was prepped and draped in the sterile surgical fashion patient received IV antibiotic prior to skin incision. A standard direct lateral approach was made over the entry point of the greater trochanter, the incision was made through the skin and subcutaneous tissue hemostasis was obtained with Bovie cautery. Using careful sharp dissection the fascia was identified and incised, flouroscopic assistance was used to identify the entry point. The guidepin was placed at the entry point using fluroscopic assistance, it was over reamed with the proximal reamer. The 10 x 130 degree nail was placed through the entry hole, across the fracture site into the distal fragment. the position was confirmed with fluroscopy. A guide pin was placed through the proximal locking guide from the lateral femur through the nail across the fracture site into the femoral head, it was over reamed with the reamer. The 110 mm helical blade was placed over the guide pin through the nail into the femoral head, locked in place with the proximal locking bolt. The 36 mm Distal locking bolt was placed through the distal locking guide. position of hardware and fracture reduction found to be acceptable with fluroscopic assistance. The wound was irrigated. Fascia was closed with a running #2 PDS suture. The deep tissue was irrigated and closed deep with #1 PDS suture superficially with 0 PDS suture and skin was closed with Dermabond. The patient was placed in a sterile dressing The patient was extubated and transferred to the recovery room in stable condition. Anesthesia: spinal Surgeon: Jey Enrique Was there an assistant professor of biochemistry present: No Estimated blood loss (cc): 50 Condition: stable Disposition: PACU
--- NOTE | 2018-02-25 15:01 | Anesthesia Evaluation Post Op ---
Date of Encounter: 02/25/18 Time of Encounter: 15:01 Notes: 02/25/18 15:01 Patient's vital signs have been reviewed. Patient is stable postoperatively and has adequately recovered from anesthesia. Patient is determined to have stable airway patency and respiratory function including respiratory rate and oxygen saturation. Patient has a stable heart rate, blood pressure and adequate hydration. Patients mental status is acceptable. Patients temperature is appropriate. Pain and nausea are adequately controlled. - Discharge PostOp Status: Transfer Patient to floor
[2018-02-25] MEDS ORDERED: Famotidine 20 MG TABLET PO PRN (15:41)
[2018-02-25] MEDS ORDERED: Ipratropium/Albuterol Neb 3 ML IH PRN (15:41)
[2018-02-25] MEDS ORDERED: Naloxone 0.4 MG/ML INJ IVP PRN ×2 (15:41)
[2018-02-25] MEDS: hydrOXYzine pamoate 25 MG CAPSULE PO PRN (16:53)
--- NOTE | 2018-02-25 18:01 | Internal Med Progress Note ---
Date of Encounter: 02/25/18 Time of Encounter: 11:00 - Assessment and plan (1) Closed right hip fracture Current Visit: Yes Status: Acute Assessment and plan: Patient has right hip fracture due to fall. Place patient on IV fluid, pain medication. Orthopedic consult with recommendations for Right hip open reduction intramedullary nail fixation today Qualifiers: Encounter type: initial encounter Qualified Code(s): S72.001A - Fracture of unspecified part of neck of right femur, initial encounter for closed fracture (2) Unwitnessed fall Current Visit: No Status: Acute Assessment and plan: CT head has been done, no bleeding. Continue closely monitor patient. Patient may need rehabilitation discharge after surgery (3) Dementia Current Visit: No Status: Chronic Assessment and plan: Patient has baseline dementia. Generally mental status is probably at baseline now Qualifiers: Dementia type: unspecified type Dementia behavioral disturbance: without behavioral disturbance Qualified Code(s): F03.90 - Unspecified dementia without behavioral disturbance (4) Hypertension Current Visit: Yes Status: Acute Assessment and plan: Will continue home medication. Hydralazine 5 mg IV every 6 hours when necessary for high blood pressure. Qualifiers: Hypertension type: essential hypertension Qualified Code(s): I10 - Essential (primary) hypertension (5) COPD (chronic obstructive pulmonary disease) Current Visit: Yes Status: Acute Assessment and plan: Patient has no wheezing, no cough. Place patient on DuoNeb when necessary Qualifiers: COPD type: emphysema Emphysema type: unspecified Qualified Code(s): J43.9 - Emphysema, unspecified (6) DVT prophylaxis Current Visit: No Status: Acute Assessment and plan: EPCD at this point, may started anticoagulation after surgery - Time Spent With Patient Total time spent is greater than 50% in coordination of care (as documented) at patient's floor/unit and/or counseling patient: - Subjective Interval history: Orthopedic consult with recommendations for Right hip open reduction intramedullary nail fixation today - Constitutional Vitals: Temp Pulse Resp BP Pulse Ox 96.9 F L 86 16 130/55 97 02/25/18 15:22 02/25/18 15:22 02/25/18 15:22 02/25/18 15:22 02/25/18 15:22 General appearance: Present: A&O X 0, pleasant, no acute distress, answers questions appropriately - Respiratory Respiratory exam: Present: CTAB. Absent: accessory muscle use, rales, rhonchi, wheezes - Cardiovascular Cardiovascular exam: Present: RRR, +S1, +S2. Absent: diastolic murmur, gallop, rubs, systolic murmur Internal Medicine: Result - Labs CBC & Chem 7: 02/25/18 12:09 02/24/18 05:14 Labs: Short CBC 02/25/18 Range/Units 12:09 Hgb 9.8 L (11.5-15.4) g/dL Hct 30.6 L (35.3-44.9) % - ABG Interpretation ABG results: PT/INR, D-dimer PT 12.3 Seconds (9.4-12.1) H 02/24/18 05:14 - Impressions Impressions Hip X-Ray 02/25/18 11:58 IMPRESSION: Status post ORIF of the right femur. No hardware complications. D/ / 02/25/2018 14:49:04 Bar Sarkar MD / [facility] Interpreting Provider: Bar Sarkar MD Fluoroscopy 02/25/18 13:30 IMPRESSION: Intraprocedural fluoroscopic spot images as above. See separate procedure report for more information. D/ / 02/25/2018 14:09:36 Gui Steele MD / [facility] Interpreting Provider: Gui Steele MD Hip X-Ray 02/25/18 13:30 IMPRESSION: Intraprocedural fluoroscopic spot images as above. See separate procedure report for more information. D/ / 02/25/2018 14:09:36 Gui Steele MD / [facility] Interpreting Provider: Gui Steele MD - VTE Documentation of Mechanical Device: Venous foot pump, device Consult Discharge Plan - Plan Referrals: Peri Guerra MD [Primary Care Provider] - Prescriptions: OxyCODONE Immed Rel [Roxicodone 5 MG] 5 mg PO Q6HR PRN 7 Days #28 tablet PRN Reason: Severe Pain Aspirin Enteric Coated [Aspirin EC] 325 mg PO BID #20 tablet.
[2018-02-25] MEDS ORDERED: Haloperidol Lactate 5 MG/ML VIAL IVP ONE (18:17)
[2018-02-25] MEDS ORDERED: Ibuprofen 600 MG TABLET PO PRN (20:34)
[2018-02-25] MEDS ORDERED: CeFAZolin Pre 2,000 MG/100 ML 2,000 MG/100 ML BAG IVPB SCH (22:00)
[2018-02-25] MEDS: Acetaminophen 325 MG TABLET PO PRN (22:08)
[2018-02-25] MEDS: ceFAZolin 2,000 MG in 0.9 % Sodium Chloride 100 ML IVPB SCH (23:42)
[2018-02-25] MEDS ORDERED: 0.9 % Sodium Chloride 1,000 ML IVC SCH (23:45)
[2018-02-26] MEDS: 0.9 % Sodium Chloride 1,000 ML IVC SCH (00:32)
[2018-02-26] MEDS: hydrOXYzine pamoate 25 MG CAPSULE PO PRN (04:03)
[2018-02-26] MEDS: Acetaminophen 325 MG TABLET PO PRN (06:17)
[2018-02-26] MEDS: ceFAZolin 2,000 MG in 0.9 % Sodium Chloride 100 ML IVPB SCH (06:18)
--- NOTE | 2018-02-26 08:06 | Orthopedics Progress Note ---
Date of Encounter: 02/26/18 Time of Encounter: 08:06 Subjective Interval history: Patient was seen this morning doing well without complaints. Afebrile vital signs stable. Operative extremity: Neurovascularly intact Dressing clean dry and intact Calves nontender Assessment and plan: Continue with postoperative care Hematocrit 30 patient is stable for discharge back to skilled nursing. Objective Vital signs: Vital Signs Temp Pulse Resp BP Pulse Ox 02/26/18 06:39 97.7 F 79 16 135/75 94 02/26/18 03:49 97.8 F 02/26/18 03:00 99.7 F H 79 17 100/63 99 02/25/18 23:09 99.6 F 109 18 118/64 96 02/25/18 22:49 100.2 F H 109 02/25/18 22:00 102.8 F H 119 111/67 02/25/18 20:33 102 F H 118 192/66 02/25/18 19:45 99.3 F 122 18 162/70 92 02/25/18 15:22 96.9 F L 86 16 130/55 97 02/25/18 15:07 98.9 F 84 18 126/57 100 02/25/18 14:57 98.9 F 82 18 123/54 100 02/25/18 14:47 81 18 116/63 100 02/25/18 14:37 82 18 125/54 100 02/25/18 14:27 98.1 F 82 17 116/60 100 02/25/18 10:04 97.9 F 89 16 120/74 97 Intake and Output 02/25/18 02/26/18 02/26/18 23:59 07:59 15:59 Intake Total 120 / 120 1340 / 1340 Output Total 0 / 0 Balance 120 / 120 1340 / 1340 Intake: IV Fluids 0 / 0 1100 / 1100 0.9 % Sodium Chloride 1,000 ML 0 / 0 1000 / 1000 @ 75 mls/hr IVC .[id number] SHARA Rx #:[id number] Ancef 2,000 MG In 0.9 % Sodium 100 / 100 Chloride 100 ML @ 200 mls/hr IVPB Q8H SHARA Rx#:[id number] Oral 120 / 120 240 / 240 Output: Urine 0 / 0 Other: # Voids 0 # Urine Diapers 1 Weight 58.9 kg Patient Weight 02/26/18 23:59 Weight 58.9 kg - Labs CBC & BMP: 02/25/18 12:09 02/24/18 05:14 Labs: Abnormal lab results RBC 3.74 M/mcL (3.82-4.97) L 02/24/18 05:14 Hgb 9.8 g/dL (11.5-15.4) L 02/25/18 12:09 Hct 30.6 % (35.3-44.9) L 02/25/18 12:09 PT 12.3 Seconds (9.4-12.1) H 02/24/18 05:14 Glucose 116 mg/dL (70-105) H 02/24/18 05:14 - VTE Documentation of Mechanical Device: Venous foot pump, device Consult Discharge Plan - Plan Referrals: Peri Guerra MD [Primary Care Provider] - Prescriptions: Aspirin Enteric Coated [Aspirin EC] 325 mg PO BID #20 tablet. OxyCODONSadia Immed Rel [Roxicodone 5 MG] 5 mg PO Q6HR PRN 7 Days #28 tablet PRN Reason: Severe Pain
[2018-02-26] MEDS: risperiDONE 0.25 MG TABLET PO SCH ×2 (09:03→20:21)
[2018-02-26 10:31] LABS: Basophils % 0.4 %; Eosinophils # 0.2 K/mcL (0.0-0.6); Eosinophils % 2.2 %; Hematocrit 26.5 % (35.3-44.9); Hemoglobin 8.5 g/dL (11.5-15.4); Immature Granulocytes % 0.4 % (0-4); Lymphocytes # 1.2 K/mcL (0.6-4.6); Lymphocytes % 17.7 %; Mean Corpuscular HGB Conc 32.1 g/dL (31.6-35.5); Mean Corpuscular Hemoglobin 28.4 pg (28.0-33.3); Mean Corpuscular Volume 88.6 fL (83.0-100.0); Mean Platelet Volume 10.5 fL (9.4-12.4); Monocytes # 0.6 K/mcL (0.0-1.3); Monocytes % 8.5 %; Neutrophils # 4.8 K/mcL (1.6-8.9); Platelet Count 199 K/mcL (140-400); Red Blood Count 2.99 M/mcL (3.82-4.97); Red Cell Distribution Width 13.9 % (11.5-14.5); Segmented Neutrophils % 70.8 %
[2018-02-26 10:48] LABS: BUN/Creatinine Ratio 27 (6-26); Blood Urea Nitrogen 22 mg/dL (8-23); Calcium 8.4 mg/dL (8.6-10.3); Carbon Dioxide 23 mEq/L (23-29); Chloride 107 mEq/L (98-107); Glucose 184 mg/dL (70-105); Osmolality,Calculated 292 (280-300); Potassium 3.5 mEq/L (3.5-5.1); Sodium 137 mEq/L (136-145); eGFR For African Americans > 60 (> 60); eGFR For Non-African Americans > 60 (> 60)
[2018-02-26] MEDS: Aspirin Enteric Coated 81 MG Tablet PO SCH (13:26)
[2018-02-26] MEDS: *HR* HYDROcodone/Acet 5/325 mg TABLET PO PRN (13:26)
--- NOTE | 2018-02-26 15:54 | Discharge Summary ---
- NOTES TO OUTPATIENT PROVIDER Notes to Outpatient Provider: Continue to follow hemoglobin Date of Encounter: 02/26/18 Time of Encounter: 11:00 - Discharge Diagnosis (1) Closed right hip fracture Priority: Primary Status: Acute Qualifiers: Encounter type: initial encounter Qualified Code(s): S72.001A - Fracture of unspecified part of neck of right femur, initial encounter for closed fracture (2) Unwitnessed fall Priority: Primary Status: Acute (3) Dementia Priority: Secondary Status: Chronic Qualifiers: Dementia type: unspecified type Dementia behavioral disturbance: without behavioral disturbance Qualified Code(s): F03.90 - Unspecified dementia without behavioral disturbance (4) Hypertension Priority: Secondary Status: Acute Qualifiers: Hypertension type: essential hypertension Qualified Code(s): I10 - Essential (primary) hypertension (5) COPD (chronic obstructive pulmonary disease) Priority: Secondary Status: Acute Qualifiers: COPD type: emphysema Emphysema type: unspecified Qualified Code(s): J43.9 - Emphysema, unspecified Hospital course: Patient is a 77-year-old female with past medical history significant for dementia who presents to [facility] on 02/24/18 status post fall from [address] [place] [id number] at [facility]. Patient was transferred from [place] emergency room for right hip fracture. Patient had CT head and chest x-ray in [place] ER, results are unremarkable. The x-ray of pelvis shows right hip fracture, left inferior pubic ramus fracture , and old left pubic rami fracture. Orthopedic consult was called before transfer. During patients hospital stay Orthopedic recommendations for Right hip open reduction intramedullary nail fixation which was done without any complications. Patient medically stable to be discharged back to [facility]. - Time Spent with Patient Total time spent providing and/or coordinating discharge services: Less than 30 minutes - Discharge Medications Prescriptions: OxyCODONE Immed Rel [Roxicodone 5 MG] 5 mg PO Q6HR PRN 7 Days #28 tablet PRN Reason: Severe Pain Aspirin Enteric Coated [Aspirin EC] 325 mg PO BID #20 tablet. clonazePAM [Klonopin] 0.5 - 1 mg PO BID PRN 3 Days #15 tablet PRN Reason: Anxiety Home Medications: Lisinopril [Zestril] 5 mg PO DAILY 11/23/17 [History] Omeprazole [PriLOSEC] 40 mg PO DAILY 11/23/17 [History] Quetiapine Fumarate [Seroquel] 100 mg PO BID 11/23/17 [History] Simvastatin [Zocor] 20 mg PO HS 11/23/17 [History] hydrOXYzine HCl [Hydroxyzine HCl] 25 mg PO Q6H PRN 11/23/17 [History] Ammonium Lactate [Amlactin] 1 each TP BID 11/24/17 [History] Ranitidine HCl [Heartburn Relief] 150 mg PO HS PRN 11/24/17 [History] risperiDONE [Risperidone] 0.25 mg PO BID 11/24/17 [History] Docusate [Colace] 100 mg PO BID PRN 30 Days #60 capsule 11/26/17 [Rx] Aspirin Enteric Coated [Aspirin EC] 325 mg PO BID #20 tablet. 02/25/18 [Rx] OxyCODONE Immed Rel [Roxicodone 5 MG] 5 mg PO Q6HR PRN 7 Days #28 tablet [Rx] clonazePAM [Klonopin] 0.5 - 1 mg PO BID PRN 3 Days #15 tablet 02/26/18 [Rx] Allergies/Adverse Reactions: 3 Allergy/AdvReac Type Severity Reaction Status Date / Time No Known Allergies Allergy Verified 01/09/16 17:05 Date of admission: 02/24/18 03:54 Primary care physician: Peri Guerra Consults: 02/24/18 04:01 Consult to Orthopedic Surgery [CONS] Routine Consulting Provider: [facility] Reason for Consult: Right hip fracture. Dr [facility] Completed: Yes 02/25/18 15:41 Consult to Orthopedic Navigator [CONS] [CONS] Routine Consult to Golf Cart Mechanic [CONS] Routine Reason for SW Consult: post -op hip fracture RT Post Op Consult [CONS] Routine 02/26/18 04:50 Consult to Occupational Therapy [CONS] Routine Comment: Evaluate, develop and implement POC Reason for Consult: RIGHT HIP NAIL Does patient have active BEDREST order?: No Is patient medically & hemodynamically stable?: Yes PT [Consult to Physical Therapy] [CONS] Routine Comment: Evaluate, develop and implement POC Reason for Consult: RIGHT HIP IM NAIL Does patient have active BEDREST order?: No Is patient medically & hemodynamically stable?: Yes Patient assessed for mobility or mobilized this visit?: No - Constitutional Vitals: Temp Pulse Resp BP Pulse Ox 97.9 F 93 15 154/77 96 02/26/18 15:46 02/26/18 15:46 02/26/18 15:46 02/26/18 15:46 02/26/18 15:46 General appearance: Present: A&O X 0, pleasant, no acute distress, answers questions appropriately - Respiratory Respiratory exam: Present: CTAB. Absent: accessory muscle use, rales, rhonchi, wheezes - Cardiovascular Cardiovascular exam: Present: RRR, +S1, +S2. Absent: diastolic murmur, gallop, rubs, systolic murmur - Patient Status Disposition: Transfer SNF - Discharge Instructions Follow Up With: Peri Guerra MD [Primary Care Provider] - - VTE Documentation of Mechanical Device: Venous foot pump, device
--- NOTE | 2018-02-26 15:54 | Physician Discharge Referral ---
ExtendedCare Referral Info Institutional Level of Care: Skilled - Diagnosis (1) Closed right hip fracture Status: Acute (2) Unwitnessed fall Status: Acute (3) Dementia Status: Chronic (4) Hypertension Status: Acute (5) COPD (chronic obstructive pulmonary disease) Status: Acute (6) DVT prophylaxis Status: Acute - Transfer Medications Prescriptions: OxyCODONE Immed Rel [Roxicodone 5 MG] 5 mg PO Q6HR PRN 7 Days #28 tablet PRN Reason: Severe Pain Aspirin Enteric Coated [Aspirin EC] 325 mg PO BID #20 tablet. clonazePAM [Klonopin] 0.5 - 1 mg PO BID PRN 3 Days #15 tablet PRN Reason: Anxiety Home Medications: Lisinopril [Zestril] 5 mg PO DAILY 11/23/17 [History] Omeprazole [PriLOSEC] 40 mg PO DAILY 11/23/17 [History] Quetiapine Fumarate [Seroquel] 100 mg PO BID 11/23/17 [History] Simvastatin [Zocor] 20 mg PO HS 11/23/17 [History] hydrOXYzine HCl [Hydroxyzine HCl] 25 mg PO Q6H PRN 11/23/17 [History] Ammonium Lactate [Amlactin] 1 each TP BID 11/24/17 [History] Ranitidine HCl [Heartburn Relief] 150 mg PO HS PRN 11/24/17 [History] risperiDONE [Risperidone] 0.25 mg PO BID 11/24/17 [History] Docusate [Colace] 100 mg PO BID PRN 30 Days #60 capsule 11/26/17 [Rx] Aspirin Enteric Coated [Aspirin EC] 325 mg PO BID #20 tablet. 02/25/18 [Rx] OxyCODONE Immed Rel [Roxicodone 5 MG] 5 mg PO Q6HR PRN 7 Days #28 tablet [Rx] clonazePAM [Klonopin] 0.5 - 1 mg PO BID PRN 3 Days #15 tablet 02/26/18 [Rx] Allergies/Adverse Reactions: 3 Allergy/AdvReac Type Severity Reaction Status Date / Time No Known Allergies Allergy Verified 01/09/16 17:05 - Respiratory Orders Smoking Cessation: Smoking cessation has been advised. For more information, call the [place] Tobacco Quit Line at 4-951-QXWP-NOW. CERTIFICATION: I certify that the transfer of the above named patient to an Extended Care Facility is necessary for the continuing treatment of the diagnosis listed. The above information is true and accurate reflection of patient's current condition. Confidential - Redisclosure prohibited without a patient's written consent.
[2018-02-27] MEDS: *HR* HYDROcodone/Acet 5/325 mg TABLET PO PRN ×2 (04:48→10:36)
[2018-02-27] MEDS: Aspirin Enteric Coated 81 MG Tablet PO SCH ×2 (09:52→11:30)
[2018-02-27] MEDS: risperiDONE 0.25 MG TABLET PO SCH ×2 (09:53→11:30)
[2018-02-27 11:21] VITALS: BP 163/68
[2018-02-27] MEDS ORDERED: Nystatin POWDER 30 GM BOTTLE TP SCH (14:30)
--- NOTE | 2018-02-27 17:43 | Internal Med Progress Note ---
Date of Encounter: 02/27/18 Time of Encounter: 11:00 - Assessment and plan (1) Closed right hip fracture Status: Acute Assessment and plan: Patient has right hip fracture due to fall. Place patient on IV fluid, pain medication. Orthopedic consult with recommendations for Right hip open reduction intramedullary nail fixation Patient will be transferred to [facility] for strengthening rehabilitation Qualifiers: Encounter type: initial encounter Qualified Code(s): S72.001A - Fracture of unspecified part of neck of right femur, initial encounter for closed fracture - Time Spent With Patient Total time spent is greater than 50% in coordination of care (as documented) at patient's floor/unit and/or counseling patient: - Subjective Interval history: Patient has been approved for bed at [facility] today - Constitutional Vitals: Temp Pulse Resp BP Pulse Ox 98.0 F 106 16 163/68 93 02/27/18 11:14 02/27/18 11:14 02/27/18 11:14 02/27/18 11:14 02/27/18 11:14 General appearance: Present: A&O X 0, pleasant, no acute distress, answers questions appropriately - Cardiovascular Cardiovascular exam: Present: RRR, +S1, +S2. Absent: diastolic murmur, gallop, rubs, systolic murmur Internal Medicine: Result - Labs CBC & Chem 7: 02/26/18 10:14 02/26/18 10:14 - ABG Interpretation ABG results: PT/INR, D-dimer PT 12.3 Seconds (9.4-12.1) H 02/24/18 05:14 - VTE Documentation of Mechanical Device: Venous foot pump, device Consult Discharge Plan - Plan Referrals: Selene Aponte PAC [Physician Release Of Information Specialist] - 03/06/18 9:45 am Prescriptions: OxyCODONE Immed Rel [Roxicodone 5 MG] 5 mg PO Q6HR PRN 7 Days #28 tablet PRN Reason: Severe Pain Aspirin Enteric Coated [Aspirin EC] 325 mg PO BID #20 tablet. clonazePAM [Klonopin] 0.5 - 1 mg PO BID PRN 3 Days #15 tablet PRN Reason: Anxiety
== END 2018-02-27 16:38 | DRG 482 ==
LOC: 3NENU → SUATTDRO 02-24 03:54
PROVIDERS: ADMIT Internal Medicine; ATTEND Hospitalist